=== PATIENT | female | born 1945 | race Caucasian/White ===

== ENCOUNTER → 2017-01-31 | Outpatient (CLI) | payer MEDICARE, OTHER ==
[~2017-01-31] MED LIST: ASPIR 8181 MG PO; CALCIUM 600 +1 EACH PO; CPAP INH; CYMBALTA60 MG PO; FLONASE 50 MCG/16 GM NOSE; GLUCOPHAGE1000 MG PO; GLUCOSAMINE &1 EAC1 PO; LIPITOR80 MG PO; LOSARTAN-HCTZ1 EAC1 PO; MULTI VITAMIN1 EACH PO; NAPROXEN250 MG PO; OPTIMAL D350000 UNIT PO; PAIN RELIEF650 MG PO; TRULICITY0.75 MG/0. SUB-Q; ZANTAC (NON-FO150 MG PO
== END | disposition disaster alternative care site (69) ==
LOC: GOPD 01-26
DX: R92.8 Other abnormal and inconclusive findings on diagnostic imaging of breast (principal)